=== PATIENT | male | born 1995 | race Caucasian/White ===

== ENCOUNTER 2023-06-07 21:57 | Emergency (ER) | payer MEDICAID, OTHER ==
[~2023-06-07] VITALS: Ht 188 cm; Wt 86.2 kg
[2023-06-07] MEDS ORDERED: BUPR-96 PO (22:16)
[2023-06-07] MEDS ORDERED: FLUO20CA36 PO (22:16)
[2023-06-07] MEDS ORDERED: IV NORMAL SALINE 1000 ML BAG IV ONE (22:30)
[2023-06-07 22:43] LABS: BASOPHILS # (AUTO) 0.1 K/UL (0.0-0.2); EOSINOPHILS # (AUTO) 0.3 K/uL (0.0-0.7); HEMATOCRIT 39.1 % (36.7-47.1); HEMOGLOBIN 13.5 g/dL (12.5-16.3); LYMPHOCYTES % (AUTO) 36.6 % (20.5-51.5); MEAN CORPUSCULAR HGB CONC 35 g/dL (32.5-36.3); MEAN CORPUSCULAR VOLUME 86.7 fL (73.0-96.2); MONOCYTES # (AUTO) 0.6 K/uL (0.1-1.30); MONOCYTES % (AUTO) 10.6 % (0.0-11.0); NEUTROPHILS # (AUTO) 2.5 K/uL (1.8-8.9); NEUTROPHILS % (AUTO) 45.8 % (38.5-71.5); PLATELET COUNT (AUTO) 203 K/uL (152-348); RED BLOOD CELL COUNT(AUTO) 4.51 MIL/uL (4.06-5.63); RED CELL DISTRIBUTION WIDTH 12.9 % (12.1-16.2); WHITE BLOOD COUNT (AUTO) 5.6 K/uL (3.6-10.2)
[2023-06-07 22:53] LABS: DIFFERENTIAL COMMENT 1
[2023-06-07 23:03] LABS: CARBON DIOXIDE 28 mmol/L (21-32); CHLORIDE 105 mmol/L (98-107); CREATININE 1.2 mg/dL (0.6-1.3); GLUCOSE 88 mg/dL (74-106); POTASSIUM 3.8 mmol/L (3.5-5.1); SODIUM SERUM 142 mmol/L (136-145); UREA NITROGEN, BLOOD 16 mg/dL (7-18)
[2023-06-07 23:23] LABS: CALCIUM 9.2 mg/dL (8.5-10.1)
[2023-06-08 00:11] VITALS: BP 120/86; O2SAT 98
== END 2023-06-08 00:11 | disposition home or self-care (01) ==
LOC: ER 22:07
DX: R55 Syncope and collapse (principal); R20.2 Paresthesia of skin; Z79.899 Other long term (current) drug therapy
CPT/HCPCS: 99284; 96360; 70450; 80048; 85025; 84484; 36415; 93005; J7040; A4606; A4663